=== PATIENT | male | born 1995 | race African-American/Black ===

== ENCOUNTER → 2016-08-07 | Outpatient (CLI) | payer OTHER | LOC: BHSO 14:39 | DX: F20.89 Other schizophrenia (principal) ==

== ENCOUNTER → 2016-11-06 | Outpatient (CLI) | payer OTHER | LOC: BHSO 14:24 | DX: F25.0 Schizoaffective disorder, bipolar type (principal) ==

== ENCOUNTER → 2017-01-10 | Outpatient (CLI) | payer MEDICARE | LOC: BHSO 14:15 | DX: F25.0 Schizoaffective disorder, bipolar type (principal) ==

== ENCOUNTER → 2017-04-04 | Outpatient (CLI) | payer MEDICARE | LOC: BHSO 14:31 | DX: F20.9 Schizophrenia, unspecified (principal) ==

== ENCOUNTER → 2018-02-27 | Outpatient (CLI) | payer MEDICARE | LOC: BHSO 13:50 | DX: F20.9 Schizophrenia, unspecified (principal) | CPT/HCPCS: G0463 ==

== ENCOUNTER → 2018-05-29 | Outpatient (CLI) | payer MEDICARE | LOC: BHSO 13:42 | DX: F20.9 Schizophrenia, unspecified (principal) | CPT/HCPCS: G0463 ==

== ENCOUNTER → 2018-09-05 | Outpatient (CLI) | payer MEDICARE | LOC: BHSO 14:19 | DX: F20.9 Schizophrenia, unspecified (principal) | CPT/HCPCS: G0463 ==

== ENCOUNTER → 2019-03-13 | Outpatient (CLI) | payer MEDICARE | LOC: BHSO 13:38 | DX: F20.9 Schizophrenia, unspecified (principal) | CPT/HCPCS: G0463 ==

== ENCOUNTER → 2019-05-26 | Outpatient (CLI) | payer MEDICARE | LOC: BHSO 13:45 | DX: F20.9 Schizophrenia, unspecified (principal) | CPT/HCPCS: G0463 ==

== ENCOUNTER → 2019-11-11 | Outpatient (CLI) | payer MEDICARE | LOC: BHSO 08:40 | DX: F20.9 Schizophrenia, unspecified (principal) | CPT/HCPCS: G0463 ==

== ENCOUNTER → 2020-01-14 | Outpatient (CLI) | payer MEDICARE | LOC: BHSO 13:47 | DX: F20.9 Schizophrenia, unspecified (principal) | CPT/HCPCS: G0463 ==